=== PATIENT | female | born 1940 ===

== ENCOUNTER 2018-06-28 05:26 | Inpatient (IN) | payer OTHER ==
[~2018-06-28] VITALS: Ht 152.4 cm; Wt 64.4 kg
[2018-06-28] VITALS (13 sets, daily range): BP systolic 123–189; BP diastolic 77–100
[~2018-06-28 05:26] MED LIST: AMLODIPINE BESYL5 MG ORAL; BACLOFEN10 MG ORAL; CLONIDINE HCL0.2 MG PO; CYMBALTA30 MG ORAL; LOSARTAN POTASS25 MG ORAL; MELOXICAM15 MG PO; NORMODYNE100 MG ORAL; OXYBUTYNIN CHLOR5 M1 ORAL; SULFAMETHOXAZO1 EAC2 ORAL; TRAMADOL HCL50 MG ORAL
[2018-06-28] MEDS ORDERED: Pantoprazole Inj ONE (06:31)
[2018-06-28] MEDS ORDERED: Zemuron 50mg/5ml Inj IV ONE (06:31)
[2018-06-28] MEDS ORDERED: Vancomycin 1gm vial IVPB ONE ×2 (06:31→07:12)
[2018-06-28] MEDS ORDERED: Sodium Chloride 10ml vial INJ ONE ×2 (06:33→07:08)
[2018-06-28] MEDS ORDERED: Pantoprazole Inj IVP ONE (07:00)
[2018-06-28] MEDS ORDERED: Vancomycin 1gm/D5W 275ml IVPB ONE ×2 (07:00)
[2018-06-28] MEDS ORDERED: LR 1000ml 1,000 ML IVLG SCH (07:06)
--- NOTE | 2018-06-28 07:07 | Anethesia Preoperative Eval ---
Anesthesia Pre-op PMH/ROS General Date of Evaluation: Jun 28, 2018 Time of Evaluation: 07:24 Anesthesiologist: Dania ASA Score: ASA 3 Mallampati Score Class I : Soft palate, uvula, fauces, pillars visible Class II: Soft palate, uvula, fauces visible Class III: Soft palate, base of uvula visible Class IV: Only hard plate visible Mallampati Classification: Class II Surgeon: Sav Diagnosis: Back Pain Surgical Procedure: TLIF L3-4 Anesthesia History: none Social History: smoking - Hx of for 35 yrs Family History: no anesthesia problems Allergies: Coded Allergies: No Known Allergies (Unverified , 06/26/18) Medications: see eMAR Patient NPO?: Yes NPO Date: Jun 27, 2018 NPO Time: 1800 Past Medical History Cardiovascular: Reports: HTN Musculoskeletal/Integumentary: Reports: other - Osteoporosis, Muscle atrophy bilateral legs. Anesthesia Pre-op Phys. Exam Physician Exam Last Vital Signs Date Time Temp Pulse Resp B/P (MAP) Pulse Ox O2 Delivery O2 Flow Rate FiO2 06/28/18 06:43 97.2 80 20 156/87 (110) 97 06/28/18 06:24 Room Air Constitutional: NAD Neurologic: CN 2-12 intact Cardiovascular: RRR Respiratory: CTA Gastrointestinal: S/NT/ND Airway Exam Mallampati Score: Class II MO: limited ROM: limited Teeth: missing, intact Anesthesia Pre-op A/P Risk Assessment & Plan Assessment: ASA 3 Plan: GA, SED, GlideScope Go Status Change Before Surgery: No Pre-Antibiotics Dru Gram Vancomycin IV Given Within 1 Hr of Incision: Yes Time Given: 07:46 Reece Najera MD Jun 28, 2018 07:07
[2018-06-28] MEDS ORDERED: Dexamethasone 4mg/ml vial ONE (07:08)
[2018-06-28] MEDS ORDERED: Lidocaine 1% MPF 10mg/ml 5ml ONE ×2 (07:08→10:28)
[2018-06-28] MEDS ORDERED: Bacitracin Oint 15gm Tube TOPIC ONE (07:12)
[2018-06-28] MEDS ORDERED: Thrombin 5000 units spray kit TOPIC ONE (07:12)
[2018-06-28] MEDS ORDERED: Heparin 1000 units/ml 1ml Vial ONE (07:12)
[2018-06-28 07:13] LABS: APPEARANCE,URINE CLEAR; BILIRUBIN, URINE NEGATIVE (NEGATIVE); COLOR,URINE PALE YELLOW; GLUCOSE, URINE (UA) NEGATIVE (NEGATIVE); KETONES,URINE NEGATIVE (NEGATIVE); NITRITE,URINE NEGATIVE (NEGATIVE); PH,URINE 6 (4.5-8.0); PROTEIN,URINE NEGATIVE (NEGATIVE); UROBILINOGEN,URINE NORMAL MG/DL (0.0-1.0)
[2018-06-28] MEDS ORDERED: Thrombin 5000 units TOPIC ONE ×2 (07:13→10:10)
[2018-06-28] MEDS ORDERED: Bupivacaine w/Epi 0.5% 30ml Vial INJ ONE (07:13)
[2018-06-28] MEDS ORDERED: Gelfoam Size TOPIC ONE (07:13)
[2018-06-28 07:14] LABS: LEUKOCYTE ESTERASE ,URINE 2+ (NEGATIVE)
[2018-06-28] MEDS ORDERED: Gelfoam Absorbable 1gm powder pkt TOPIC ONE (07:14)
[2018-06-28] MEDS ORDERED: Bacitracin 50000 Units Vial ONE (07:14)
[2018-06-28] MEDS ORDERED: Lidocaine 1% Plain 30 ml INJ ONE ×2 (07:14→07:41)
[2018-06-28] MEDS ORDERED: HYDROcodone/Acetamin 5/325 tab ORAL PRN (07:15)
[2018-06-28] MEDS ORDERED: Meperidine 50mg/ml Inj(FOR RIGORS ONLY) IVP PRN (07:15)
[2018-06-28] MEDS ORDERED: LORazepam Inj 2mg/ml 1ml IV PRN (07:15)
[2018-06-28] MEDS ORDERED: HYDROcodone/Acetamin 7.5/325 tab ORAL PRN ×2 (07:15→11:30)
[2018-06-28] MEDS ORDERED: oxyCODONE HCL/Acetaminophen 5/325mg ORAL PRN (07:15)
[2018-06-28] MEDS ORDERED: DiphenhydrAMINE 50mg/ml Inj IVP PRN (07:15)
[2018-06-28] MEDS ORDERED: Midazolam 2mg/2ml Inj IVP PRN (07:15)
[2018-06-28] MEDS ORDERED: Metoclopramide 10mg/2ml Inj IVP PRN (07:15)
[2018-06-28] MEDS ORDERED: fentaNYL 100 mcg/2 mL IV PRN (07:15)
[2018-06-28] MEDS ORDERED: Acetaminophen (Non formulary) 100 ML IV ONE (07:15)
[2018-06-28] MEDS ORDERED: Hydromorphone 0.5mg/0.5ml inj IVP PRN (07:15)
[2018-06-28] MEDS ORDERED: Labetalol 5mg/ml 20ml vial IV PRN (07:15)
[2018-06-28] MEDS ORDERED: Ketorolac 30mg Inj IV PRN ×2 (07:15)
[2018-06-28] MEDS ORDERED: Atropine Sulfate 0.4mg/ml inj IVP PRN (07:15)
[2018-06-28] MEDS ORDERED: NS Irrig 1000ml IRRIG ONE (07:29)
[2018-06-28] MEDS ORDERED: NS Irrig 1000ml ONE (07:30)
[2018-06-28] MEDS ORDERED: LR 1000ml ONE (07:30)
[2018-06-28] MEDS ORDERED: Propofol 1,000mg/ 100ml btl IV ONE (07:30)
[2018-06-28] MEDS ORDERED: Sterile Water Irrig 1000ml IRRIG ONE (07:30)
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
--- NOTE | 2018-06-28 08:49 | Immediate Post-Op Evaluation ---
Immediate Post-Op Evalulation Immediate Post-Op Evalulation Procedure: TLIF L3-4 Date of Evaluation: Jun 28, 2018 Time of Evaluation: 11:34 IV Fluids: 800 LR Blood Products: 0 Estimated Blood Loss: 125 Urinary Output: 1200 Blood Pressure Systolic: 154 Blood Pressure Diastolic: 89 Pulse Rate: 84 Respiratory Rate: 16 O2 Sat by Pulse Oximetry: 100 Temperature (Fahrenheit): 98.2 Pain Score (1-10): 2 Nausea: No Vomiting: No Complications 0 Patient Status: awake, reacts, patent, extubated, none Hydration Status: adequate Dru Gram Vancomycin IV Given Within 1 Hr of Incision: Yes Time Given: 07:46 Reece Najera MD Jun 28, 2018 08:49
[2018-06-28] MEDS ORDERED: fentaNYL 100 mcg/2 mL IV ONE (08:59)
[2018-06-28] MEDS ORDERED: Neostigmine 1mg/ml 10ml Inj ONE (10:37)
[2018-06-28] MEDS ORDERED: Glycopyrrolate 0.2mg/ml 1ml Vial ONE (10:37)
[2018-06-28] MEDS ORDERED: Naloxone 0.4mg/ml Inj ONE (10:56)
[2018-06-28] MEDS ORDERED: Milk of Magnesia 30ml Ud ORAL PRN (11:30)
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
--- NOTE | 2018-06-28 12:08 | General Progress Note ---
Progress Note Progress Note Neurosurgery Post op S/ No headaches. No leg pain and right leg feels stronger on exam O/ Vs: Last 24 Hour Vital Signs Date Time Temp Pulse Resp B/P (MAP) Pulse Ox O2 Delivery O2 Flow Rate FiO2 06/28/18 11:55 82 16 156/86 100 Nasal Cannula 3 06/28/18 11:50 84 15 155/84 100 Nasal Cannula 3 06/28/18 11:40 81 19 158/86 100 Nasal Cannula 3 06/28/18 11:30 85 15 167/88 100 Simple Mask 6 06/28/18 11:23 98.1 84 16 189/100 100 Simple Mask 6 06/28/18 11:21 84 16 100 06/28/18 06:43 97.2 80 20 156/87 (110) 97 06/28/18 06:24 Room Air Alert and oriented x3 Moves all extremities well Lower extremities are strong Normal sensation Wound completely dry doing well S/p lumbar fusion and CSF leak repair Flat x 24 hrs Family updated. Katie Ang MD Jun 28, 2018 12:08
--- NOTE | 2018-06-28 12:25 | NUR ---
NURSE NOTES: PATIENT RECEIVED FROM PACU ON BED IN SUPINE FLAT POSITION. AOX4. DENIES PAIN AT THIS TIME. PT. LOG ROLLED IN BED TO SEE SURGICAL SITE; C/D/I. ICE PACK PLACED. NEUROVASCULAR CHECKS PERFORMED. (SEE INTERVENTIONS) HEPLOCK PATENT AND SECURED. ETIENNE CATHETER SECURED AND PATENT. DRAINING STRAW-COLORED URINE. BEDSIDE REPORT RECEIVED FROM LEAD RADIATION THERAPIST. PATIENT AND DAUGHTER INSTRUCTED OF BEDREST RESTRICTIONS. QUESTIONS ANSWERED , NEEDS MET. PT/DTR ORIENTED TO ROOM. CALL LIGHT WITHIN REACH.
--- NOTE | 2018-06-28 13:04 | Diagnostic Imaging Report ---
Indication: Intraoperative imaging Comparison: None Findings: 4 fluoroscopic views of the lumbar spine were obtained. Images of the lower lumbar spine showing interspinous a prosthesis at L4-5. Anterolisthesis noted at this level with moderate narrowing of intervertebral disc. IMPRESSION: Intraoperative imaging
--- NOTE | 2018-06-28 16:04 | NUR ---
NURSE NOTES: PATIENT REMAINS STABLE AND COMFORTABLE IN SUPINE FLAT POSITION. FAMILY AT BEDSIDE. TOLERATING CLEAR LIQUIDS. VSS.AFEBRILE. CMS WNL. CALL LIGHT WITHIN REACH.
[2018-06-28] MEDS: NS w/KCl 20mEq 1,000 ML IV SCH (16:31)
[2018-06-28] MEDS: HYDROmorphone 1mg/ml Carpuject IVP PRN ×2 (16:34→21:16)
[2018-06-28] MEDS ORDERED: Docusate 100mg cap ORAL SCH (18:00)
[2018-06-28] MEDS: Docusate Sod/Senna tab ORAL SCH (18:01)
--- NOTE | 2018-06-28 18:16 | NUR ---
NURSE NOTES: PATIENT DOING WELL. PAIN CONTROLLED WITH DILAUDID. TOLERATING PO. NO N/V/ NOTED. VSS. USING INCENTIVE SPIROMETRY INSTRUCTED. BED IN LOW AND LOCKED POSITION. CALL LIGHT WITHIN REACH.
--- NOTE | 2018-06-28 19:10 | NUR ---
HAND-OFF: Report given to CHRISTOPHER ALEGRIA RN.
--- NOTE | 2018-06-28 19:30 | NUR ---
NURSE NOTES: Received report from DUSTY Santamaria. Received pt lying flat in bed, AOX4, denies pain at this time, no distress noted. Posterior surgical dressing C/D/I. IV L hand # 18 patent and intact IV fluid infusing as ordered. Rodriguez catheter draining yellow color output. Instructed pt to use IS q 1 x 10 while awake. Pt verbalized understanding. Bed in lowest position and locked, side rails up x 2, call light within reach. Will continue to monitor.
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
--- NOTE | 2018-06-28 20:54 | Consultation ---
History of Present Illness General Date patient seen: Jun 28, 2018 Time patient seen: 20:50 Present Illness Allergies: Coded Allergies: No Known Allergies (Unverified , 06/26/18) Medication History Scheduled Amlodipine Besylate* (Amlodipine Besylate*), 5 MG ORAL BID, (Reported) Baclofen* (Baclofen*), 5 MG ORAL BED, (Reported) Clonidine Hcl (Clonidine Hcl), 0.2 MG PO BEDTIME, (Reported) Duloxetine Hcl* (Cymbalta*), 30 MG ORAL DAILY, (Reported) Labetalol HCl (Labetalol HCl), 50 MG ORAL DA, (Reported) Losartan Potassium* (Losartan Potassium*), 25 MG ORAL BID, (Reported) Oxybutynin Chloride (Oxybutynin Chloride), 5 MG ORAL DAILY, (Reported) Sulfamethoxazole/Trimethoprim Ds Tablet* (Sulfamethoxazole-Tmp Ds Tablet*), 1 TAB ORAL TWICE A DAY, (Reported) Scheduled PRN Tramadol Hcl* (Ultram*), 50 MG ORAL BID PRN for For Pain, (Reported) Discontinued Medications Meloxicam* (Meloxicam*), 15 MG PO DAILY, (Reported) Discontinued Reason: MD discontinued med Patient History Healthcare decision maker KEVIN ELLIS-DAUGHTER Resuscitation status Full Code Advanced Directive on File Review of Systems Review of Symptoms General ROS: no fever Respiratory ROS: no cough, shortness of breath, or wheezing Cardiovascular ROS: no chest pain Gastrointestinal ROS: denies abdominal pain, bright red blood in stool. Musculoskeletal ROS: has pain Dermatological ROS: no new or changing skin lesions, rashes or pruritis Physical Exam Physical Exam General appearance: alert, cooperative, Head: Normocephalic, Eyes: conjunctivaeclear. Neck: no JVD Lungs: clear to auscultation bilaterally Heart: regular rate and rhythm, S1, S2 normal, Abdomen: soft, non-tender. Bowel sounds normal. No masses, Extremities: extremities normal, atraumatic, no cyanosis or edema able to dorsifklex the ankle Last 24 Hour Vital Signs Date Time Temp Pulse Resp B/P (MAP) Pulse Ox O2 Delivery O2 Flow Rate FiO2 06/28/18 17:04 98.9 06/28/18 16:00 98.9 77 19 126/80 (95) 96 06/28/18 12:55 98.6 79 16 129/89 (102) 100 3/28/19 12:30 Room Air 06/28/18 12:30 97.6 81 15 156/83 100 Nasal Cannula 3 06/28/18 12:25 98.4 82 16 123/77 (92) 100 06/28/18 12:15 85 16 158/85 100 Nasal Cannula 3 06/28/18 12:00 83 18 160/81 100 Nasal Cannula 3 06/28/18 11:55 82 16 156/86 100 Nasal Cannula 3 06/28/18 11:50 84 15 155/84 100 Nasal Cannula 3 06/28/18 11:40 81 19 158/86 100 Nasal Cannula 3 06/28/18 11:30 85 15 167/88 100 Simple Mask 6 06/28/18 11:23 98.1 84 16 189/100 100 Simple Mask 6 06/28/18 11:21 84 16 100 06/28/18 06:43 97.2 80 20 156/87 (110) 97 06/28/18 06:24 Room Air impression s/p conmplex lumbar spine surgery perioperative antibiotic prophylaxis given PT Ot may require to place in rehab monitor closely pyuria preop on bactrim hypertension on anti hypertensive with hiold parameters discussed with nursing staff. Laboratory Tests Test 06/28/18 06:15 Urine Color Pale yellow Urine Appearance Clear Urine pH 6 (4.5-8.0) Urine Specific [place] 1.015 (1.005-1.035) Urine Protein Negative (NEGATIVE) Urine Glucose (UA) Negative (NEGATIVE) Urine Ketones Negative (NEGATIVE) Urine Blood 1+ (NEGATIVE) H Urine Nitrite Negative (NEGATIVE) Urine Bilirubin Negative (NEGATIVE) Urine Urobilinogen Normal MG/DL (0.0-1.0) Urine Leukocyte Esterase 2+ (NEGATIVE) H Urine RBC 0-2 /HPF (0 - 2) Urine WBC 2-4 /HPF (0 - 2) Urine Squamous Epithelial Cells Few /LPF (NONE/OCC) Urine Bacteria Few /HPF (NONE) Height (Feet): 5 Height (Inches): 0.00 Weight (Pounds): 142 Medications Current Medications Medications (Trade) Dose Ordered Sig/Reginald Route PRN Reason Start Time Stop Time Status Last Admin Dose Admin Acetaminophen (Tylenol) 650 mg Q4H PRN ORAL headache or temp>101 06/28/18 11:30 07/28/18 11:29 Acetaminophen (Tylenol) 650 mg Q6H PRN ORAL Mild Pain (Pain Scale 1-3) 06/28/18 11:30 07/28/18 11:29 Acetaminophen/ Hydrocodone Bitart ([place] 7.5/325) 1 tab Q3H PRN ORAL pain score 4-6 06/28/18 11:30 07/05/18 11:29 Acetaminophen/ Hydrocodone Bitart ([place] 7.5/325) 2 tab Q3H PRN ORAL pain scale 7-10 06/28/18 11:30 07/05/18 11:29 Duloxetine HCl (Cymbalta) 30 mg DAILY ORAL 06/29/18 09:00 07/29/18 08:59 Hydromorphone HCl (Dilaudid) 1 mg Q2H PRN IVP Breakthrough Pain 06/28/18 11:30 07/05/18 11:29 06/28/18 16:34 Labetalol HCl (Normodyne) 50 mg DAILY ORAL 06/29/18 09:00 07/29/18 08:59 Losartan Potassium (Cozaar) 25 mg EVERY 12 HOURS ORAL 06/28/18 21:00 07/28/18 20:59 Magnesium Hydroxide (Mom) 30 ml QIDPRN PRN ORAL Constipation 06/28/18 11:30 07/28/18 11:29 Ondansetron HCl (Zofran) 4 mg Q6H PRN IVP Nausea & Vomiting 06/28/18 11:30 07/28/18 11:29 Oxybutynin Chloride (Ditropan) 5 mg DAILY ORAL 06/29/18 09:00 07/29/18 08:59 Senna/Docusate Sodium (Ana-Colace) 1 tab TWICE A DAY ORAL 06/28/18 18:00 07/28/18 17:59 06/28/18 18:01 Sodium Chloride 1,000 ml @ 75 mls/hr [id number] IV 06/28/18 13:00 07/28/18 12:59 06/28/18 16:31 Sodium Chloride 1,000 ml @ 100 mls/hr Q10H IV 06/28/18 07:00 07/28/18 06:59 Trimethoprim/ Sulfamethoxazole (Bactrim Single Strength) 1 tab EVERY 12 HOURS ORAL 06/28/18 21:00 4/4/19 20:59 Vancomycin HCl 1 gm/Dextrose 275 ml @ 183.3 mls/ hr EVERY 12 HOURS IVPB 06/28/18 21:00 06/29/18 10:31 [facility] Hospital declaration INPATIENT level of care is warranted for this patient because patient is a 89 year old with who presents with suspicion of . I have a high level of concern because . Patient is at high risk for . Plan of care/treatment include . Patient care is expected to be greater than 2 midnights. OBSERVATION level of care is warranted for this patient. Patient is a 89 year old with who presents with . Patient will be admitted for 1 midnight, but if additional night(s) is/are necessary, patient will be converted to inpatient status for the entire hospitalization Disposition: Once the patient is stable to leave the hospital, I anticipate the patient will likely be discharged to the following environment: Estimated discharge date: I spent 70 minutes on this patient's case, and minutes was dedicated to counseling and/or care coordination. MIPS (Merit-based Incentive Payment System) Applicable CPT: 07594, 50065 CHECK ALL THAT ARE MET: Measure #5 (CHF): All ages. Prescribe VIKTOR/ARB upon discharge for patients with left ventricular systolic dysfunction. If not, the reason is clearly documented in the medical chart. Measure #8 (CHF): All ages. Prescribe a beta bairon upon discharge for patients with left ventricular systolic dysfunction. If not, the reason is clearly documented in the medical chart. Measure #47 Advance care plan or surrogate decision maker documented in the medical record. Measure #130 The provider has documented, updated, or reviewed the patients current medication list and has documented it in the patients note. Measure #374 (All): Send report to referring provider. Measure #407(Sepsis due to MSSA bacteremia): Age 18+ Patient treated with a beta-lactam antibiotic (Nafcillin, Oxacillin or Cefazolin) as definitive therapy. MEDICAL COMPLEXITY High complexity medical decision making (need 2/3 categories) Problem - need 4 points Acute/new problem with new plan for workup (4 points, 1 max) Acute/new problem without additional workup (3 points, 1 max) Unstable chronic problem actively being managed (2 point each, 2 max) Stable chronic problem actively being managed (1 point each, 2 max) Self-limited/transient process (constipation, muscle ache, etc) (1 point each , 2 max) Data - need 4 points Reviewed labs/imaging studies (1 points, 2 max) Independent review of imaging (EKG, xrays, etc) (2 points, 2 max) Discussed case with consult/other MD/RN (2 points, 2 max) High Risk - qualify if have one of the following: Severe exacerbation of acute problem, acute mental status change, IV narcotics , monitoring drug levels (vancomycin, INR, tacrolimus etc) Frankie Farris MD Jun 28, 2018 20:54
--- NOTE | 2018-06-28 21:00 | NUR ---
NURSE NOTES: Dr. Farris came and saw pt MD ordered blood pressure medication. Orders carried out.
[2018-06-28] MEDS: Losartan 25mg tab ORAL SCH (21:12)
[2018-06-28] MEDS: Vancomycin 1 GM in D5W 275 ML IVPB SCH (21:12)
[2018-06-28] MEDS: Bactrim SS Tab ORAL SCH (21:12)
[2018-06-29] VITALS (8 sets, daily range): BP systolic 116–156; BP diastolic 68–95
--- NOTE | 2018-06-29 00:11 | NUR ---
NURSE NOTES: Urine culture collected and sent to lab.
[2018-06-29] MEDS: NS w/KCl 20mEq 1,000 ML IV SCH ×2 (02:23→15:40)
--- NOTE | 2018-06-29 03:15 | History and Physical Report ---
DATE OF ADMISSION: 06/28/2018 HISTORY OF PRESENT ILLNESS: The patient is an unfortunate female, who is admitted to the hospital for further evaluation. In preop, the patient had vancomycin 1 gram en route to the operating room. The patient's planned surgery was posterior lumbar decompression, interspinous fusion. The patient is an unfortunate female, who has had history of arthritis, hypertension, and fibroids. She was seen and evaluated on 06/16/2018. PAST MEDICAL HISTORY: 1. Arthritis. 2. Hypertension. MEDICATIONS: Prior to admission include: 1. Oxybutynin 5 daily. 2. Losartan 25 daily. 3. Labetalol 100 b.i.d. 4. Norvasc 5 daily. 5. Baclofen 10 daily. 6. Clonidine 0.2 at bedtime. 7. Cymbalta 30 daily. 8. Mobic p.r.n. 9. Tramadol 50. SOCIAL HISTORY: She is a former smoker. She drinks alcohol. She does not use any drugs. An ejection fraction that was obtained on the patient shows ejection fraction to be 60 to 65 percent. She does have diastolic dysfunction. She has concentric mild left ventricular hypertrophy. This patient underwent surgery without difficulty. Postoperatively, the patient was sent to the PACU. She denies any nausea or vomiting. She denies any double vision or blurred vision. vitals reviewed PHYSICAL EXAMINATION: HEENT: Normocephalic and atraumatic. HEART: S1 and S2. Regular rate and rhythm. LUNGS: Clear to auscultation bilaterally. NECK: There is no jugular venous distention. ABDOMEN: Soft. Positive bowel sounds. EXTREMITIES: No clubbing. No cyanosis. IMPRESSION: This is an unfortunate female, who was admitted to the hospital for further evaluation after having a posterior lumbar fusion. PLAN: 1. Make sure to resume her blood pressure medications with hold parameters. 2. Avoid any NSAID. 3. CBC and CMP daily will be ordered on the patient to monitor the patient closely. 4. DVT prophylaxis with sequential compression stocking as well as LAUREL hose stockings. 5. Preoperative antibiotic prophylaxis. 6. PT. 7. OT. Frankie Farris M.D. DR: RENNY JOB#: [id number] CC: REG
--- NOTE | 2018-06-29 06:00 | NUR ---
NURSE NOTES: Pt refused ice pack to posterior surgical site. Will endorse to next nurse.
[2018-06-29 07:08] LABS: BASOPHILS % (AUTO) 0.5 % (0.0-2.0); EOSINOPHILS % (AUTO) 0.1 % (0.0-3.0); HEMATOCRIT 34.6 % (37.0-47.0); HEMOGLOBIN 10.9 G/DL (12.0-16.0); LYMPHOCYTES % (AUTO) 12.1 % (20.0-45.0); MEAN CORPUSCULAR VOLUME 84 FL (80-99); MONOCYTES % (AUTO) 8.1 % (1.0-10.0); NEUTROPHILS % (AUTO) 79.2 % (45.0-75.0); PLATELET COUNT 261 K/UL (150-450); RED BLOOD COUNT 4.11 M/UL (4.20-5.40); RED CELL DISTRIBUTION WIDTH 15.8 % (11.6-14.8); WHITE BLOOD COUNT 12.4 K/UL (4.8-10.8)
--- NOTE | 2018-06-29 07:20 | NUR ---
NURSE NOTES: Pt received flat . Pt to be transitioned into semi fowlers at 10 and assessed for headache. Currently complaining of headache. Medication given from outgoing nurse. call light is in reach. Provided assistance with breakfast. Current paln of care will be followed
[2018-06-29] MEDS: HYDROmorphone 1mg/ml Carpuject IVP PRN (07:25)
[2018-06-29 07:32] LABS: ANION GAP 7 mmol/L (5-15); BLOOD UREA NITROGEN 9 mg/dL (7-18); CARBON DIOXIDE 28 MMOL/L (21-32); CHLORIDE 104 MMOL/L (98-107); CREATININE 0.6 MG/DL (0.55-1.30); POTASSIUM 4.7 MMOL/L (3.5-5.1); SODIUM 139 MMOL/L (136-145)
--- NOTE | 2018-06-29 07:49 | NUR ---
HAND-OFF: Report given to DUSTY Matias. Pt in stable condition.
[2018-06-29] MEDS: Docusate Sod/Senna tab ORAL SCH ×2 (09:31→18:35)
[2018-06-29] MEDS: Oxybutynin 5mg tab ORAL SCH (09:32)
[2018-06-29] MEDS: Losartan 25mg tab ORAL SCH ×2 (09:32→20:16)
[2018-06-29] MEDS: Bactrim SS Tab ORAL SCH ×2 (09:33→20:16)
[2018-06-29] MEDS: DULoxetine 30mg cap ORAL SCH (09:33)
[2018-06-29] MEDS: Vancomycin 1 GM in D5W 275 ML IVPB SCH (09:42)
--- NOTE | 2018-06-29 10:20 | NUR ---
NURSE NOTES: Dr Ang called to report that pt has a headache, and if still wanted real estate underwriter to raise hob. gave instructions to raise head, and if the pain increase to follow protocol. Charge Nurse made aware. HOB elevated pt stated headache was reilieved slightly by position change .
--- NOTE | 2018-06-29 10:50 | NUR ---
NURSE NOTES: HOB raised slightly pt tolerating. Ears do not have have drainage. Has not complained of increase pressure. Current paln of care will be followed Addendum: 06/29/18 at 1117 by Polly Toledo RN current plan of care will be followed
[2018-06-29] MEDS: HYDROcodone/Acetamin 7.5/325 tab ORAL PRN (13:10)
--- NOTE | 2018-06-29 13:39 | 48 Hour Post Anesthesia Eval ---
Post Anesthesia Evaluation Procedure: TLIF L3-4 Date of Evaluation: Jun 29, 2018 Time of Evaluation: 12:02 Blood Pressure Systolic: 156 0: 90 Pulse Rate: 90 Respiratory Rate: 16 Temperature (Fahrenheit): 98.1 O2 Sat by Pulse Oximetry: 97 Airway: patent Nausea: No Vomiting: No Pain Intensity: 2 Hydration Status: adequate Cardiopulmonary Status: Stable Mental Status/LOC: patient returned to baseline Follow-up Care/Observations: 0 Post-Anesthesia Complications: 0 Follow-up care needed: N/A Reece Najera MD Jun 29, 2018 13:39
--- NOTE | 2018-06-29 14:09 | NUR ---
CASE MANAGEMENT:REVIEW 78 YR OLD FEMALE HERE FOR ELECTIVE SURGERY SI: SEVERE LBP AND RADICULOPATHY 97.2 80 20 156/87 97% ON RA IS: TO SURGERY: BILATERAL L3 HEMILAMINECTOMY : TO MED/SURG 3 [facility] 06/29/18 SI: POD #1 98.1 90 16 156/90 97% ON RA WBC+12.4 IS: IVF@75/HR NORVASC PO QD LABETALOL PO Q12 COZAAR PO Q12 BACTRIM PO Q12 : MED/SURG STATUS
--- NOTE | 2018-06-29 15:33 | NUR ---
P.T Note: Sitting protocol passed,neuro checked and remained intact Pt. cleared by nursing for OOB mobility. P.T evaluation completed and treatment initiated per spinal protocol. Pt tolerated P.T eval/tx well. Pt initially c/o temporal headache upon initial sitting and standing however subsided over time from 5/10 post standing and gait/ambulation activities. Pt currently require MIN/CGA x 1 for bed mobility, transfers and gait activities using the FWW. Skilled P.T service is warranted to ensure safety and compliance with spinal precautions/proper body mechanics when performing ADL/functional mobilities. Recommend FWW and raised toilet seat at [place]. Addendum: 06/29/18 at 1534 by RAZA LYNN PT Amended: Links added.
--- NOTE | 2018-06-29 17:13 | NUR ---
NURSE NOTES: pt is up in chair disconnected from IV .Stated her head does not hurt and thinks it may be the iv and wanted to wait for a restart. Up and ambulated with physical therapy tolerated. Pt eating well sitting up in chair. Call light is in reach . current plan of care will be followed
--- NOTE | 2018-06-29 17:17 | NUR ---
NURSE NOTES: called earlier in shift to inquire if pt was up and walking. Stated he would call me back for possible dc of Rodriguez catheter
--- NOTE | 2018-06-29 17:56 | General Progress Note ---
Progress Note Progress Note Neurosurgery POD#1 S/ doing well. ambulated with PT several times. No postural headache. Had caffeine withdrawal head in am when falt in bed. Headcahe improved with ambulation. No longer complains of radiating pain into th elegs. Low back pain minimal O/ VS: Last 24 Hour Vital Signs Date Time Temp Pulse Resp B/P (MAP) Pulse Ox O2 Delivery O2 Flow Rate FiO2 06/29/18 13:39 90 16 97 06/29/18 09:33 90 156/90 06/29/18 09:32 156/90 06/29/18 09:32 156/90 06/29/18 09:31 90 156/90 06/29/18 09:00 Room Air 06/29/18 08:00 98.1 90 16 156/90 (112) 97 06/29/18 04:00 98.1 92 18 156/91 (112) 95 06/29/18 00:00 97.8 80 18 152/92 (112) 96 06/28/18 21:12 146/85 06/28/18 21:00 Room Air 06/28/18 20:00 97.9 81 18 146/85 (105) 99 Alert and oriented x 4. interactive and in good spirit. Incision is completely dry. No evidence of fluctance, erythema or drainage. Motor exam significant for improved strength in th eright LE. sensory normal New drerssing applied to the incision. Labs: Laboratory Tests Test 06/29/18 05:50 White Blood Count 12.4 K/UL (4.8-10.8) H Red Blood Count 4.11 M/UL (4.20-5.40) L Hemoglobin 10.9 G/DL (12.0-16.0) L Hematocrit 34.6 % (37.0-47.0) L Mean Corpuscular Volume 84 FL (80-99) Mean Corpuscular Hemoglobin 26.6 PG (27.0-31.0) L Mean Corpuscular Hemoglobin Concent 31.6 G/DL (32.0-36.0) L Red Cell Distribution Width 15.8 % (11.6-14.8) H Platelet Count 261 K/UL (150-450) Mean Platelet Volume 6.7 FL (6.5-10.1) Neutrophils (%) (Auto) 79.2 % (45.0-75.0) H Lymphocytes (%) (Auto) 12.1 % (20.0-45.0) L Monocytes (%) (Auto) 8.1 % (1.0-10.0) Eosinophils (%) (Auto) 0.1 % (0.0-3.0) Basophils (%) (Auto) 0.5 % (0.0-2.0) Sodium Level 139 MMOL/L (136-145) Potassium Level 4.7 MMOL/L (3.5-5.1) Chloride Level 104 MMOL/L (98-107) Carbon Dioxide Level 28 MMOL/L (21-32) Anion Gap 7 mmol/L (5-15) Blood Urea Nitrogen 9 mg/dL (7-18) Creatinine 0.6 MG/DL (0.55-1.30) Estimat Glomerular Filtration Rate mL/min (>60) Glucose Level 111 MG/DL (74-106) H Calcium Level 9.0 MG/DL (8.5-10.1) doing well ambulate D/c richard D/c planning Katie Ang MD Jun 29, 2018 17:56
--- NOTE | 2018-06-29 18:16 | NUR ---
NURSE NOTES: DC removed Addendum: 06/29/18 at 1819 by Polly Toledo RN Rodriguez catheter removed . No complaints of discomfort
--- NOTE | 2018-06-29 19:26 | NUR ---
NURSE NOTES: Pt has not had a desire to urinate at this time. Informed to press call light for assistance. Continues to be pain free. Pending discharge for tomorrow , personal medications taken to pharmacy, back brace delivered and at bed side. Call light well in reach , bed in safe position
--- NOTE | 2018-06-29 19:29 | NUR ---
HAND-OFF: Report given to Jose Eduardoe informed of pending discharge for am , written prescriptions in chart, and personal medications delivered to pharmacy.
--- NOTE | 2018-06-29 20:00 | NUR ---
NURSE NOTES: Patient received in bed, awake alert oriented. Denies pain at this time. Made aware need to void after removing ramos catheter, patient denies urge to void or any bladder distention. Encouraged PO, patient tolerating adequate PO fluids. Back dressing intact. Back brace at bedside. Call light in reach. Will continue to monitor.
--- NOTE | 2018-06-29 22:00 | NUR ---
NURSE NOTES: Patient successfully ambulated with walker to the bathroom and voided post catheter removal.
[2018-06-30] MEDS: HYDROcodone/Acetamin 7.5/325 tab ORAL PRN ×2 (00:16→10:27)
[2018-06-30 03:17] VITALS: BP 126/65
--- NOTE | 2018-06-30 04:19 | NUR ---
NURSE NOTES: Patient voided x3 but still no BM. Patient is passing flatus. Offered patient laxatives but patient stated she wants to wait it out as she was given stool softener yesterday.
--- NOTE | 2018-06-30 07:51 | NUR ---
HAND-OFF: Report given to Kendra MONTANO.
[2018-06-30 08:00] VITALS: BP 146/91
--- NOTE | 2018-06-30 08:00 | NUR ---
NURSE NOTES: Received report from Zaida MONTANO, pt a/a/o x4 laying in bed with no signs of distress or other issues at this time. surgical dressing dry and intact. IV on the left FA gauge #18 heplock. pt was re-educate in the importance to wear the brace at all time while out of the bed. pt is in a soft diet and she is able to tolerated well with no signs of nausea/vomiting. call light within reach, bed in lowest position. side rales up x2. plan to walk with PT. I will f/u as needed.
[2018-06-30] MEDS: Docusate Sod/Senna tab ORAL SCH (08:35)
[2018-06-30] MEDS: Bactrim SS Tab ORAL SCH (08:35)
[2018-06-30] MEDS: Losartan 25mg tab ORAL SCH (08:36)
[2018-06-30] MEDS: DULoxetine 30mg cap ORAL SCH (08:36)
[2018-06-30] MEDS: Oxybutynin 5mg tab ORAL SCH (08:36)
[2018-06-30 12:00] VITALS: BP 101/72
--- NOTE | 2018-06-30 12:10 | Consultation ---
History of Present Illness General Date patient seen: Jun 30, 2018 Time patient seen: 12:09 Present Illness Allergies: Coded Allergies: No Known Allergies (Unverified , 06/26/18) Medication History Scheduled Amlodipine Besylate* (Amlodipine Besylate*), 5 MG ORAL BID, (Reported) Baclofen* (Baclofen*), 5 MG ORAL BED, (Reported) Clonidine Hcl (Clonidine Hcl), 0.2 MG PO BEDTIME, (Reported) Duloxetine Hcl* (Cymbalta*), 30 MG ORAL DAILY, (Reported) Labetalol HCl (Labetalol HCl), 50 MG ORAL DA, (Reported) Losartan Potassium* (Losartan Potassium*), 25 MG ORAL BID, (Reported) Oxybutynin Chloride (Oxybutynin Chloride), 5 MG ORAL DAILY, (Reported) Sulfamethoxazole/Trimethoprim Ds Tablet* (Sulfamethoxazole-Tmp Ds Tablet*), 1 TAB ORAL TWICE A DAY, (Reported) Scheduled PRN Tramadol Hcl* (Ultram*), 50 MG ORAL BID PRN for For Pain, (Reported) Discontinued Medications Meloxicam* (Meloxicam*), 15 MG PO DAILY, (Reported) Discontinued Reason: MD discontinued med Patient History Healthcare decision maker KEVIN ELLIS-DAUGHTER Resuscitation status Full Code Advanced Directive on File Review of Systems ROS Narrative stillha ssome pain but better no nause a no vomiting no ches tpain no sob Physical Exam General Appearance: WD/WN HEENT: normocephalic Respiratory/Chest: lungs clear Cardiovascular/Chest: normal rate, regular rhythm Abdomen: soft Extremities: other - no edema Last 24 Hour Vital Signs Date Time Temp Pulse Resp B/P (MAP) Pulse Ox O2 Delivery O2 Flow Rate FiO2 06/30/18 10:57 98.3 06/30/18 09:00 Room Air 06/30/18 08:36 74 146/91 06/30/18 08:36 146/91 06/30/18 08:36 146/91 06/30/18 08:35 74 146/91 06/30/18 08:08 98.3 06/30/18 08:00 98.3 74 18 146/91 (109) 100 06/30/18 03:17 98.3 69 18 126/65 (85) 98 06/29/18 23:58 64 121/68 (85) 06/29/18 23:53 98.5 72 18 154/95 (114) 99 06/29/18 20:42 Room Air 06/29/18 20:27 124/73 06/29/18 20:16 69 124/73 06/29/18 20:16 124/73 06/29/18 20:00 98.5 69 18 124/73 (90) 100 06/29/18 16:00 98.2 18 116/70 (85) 06/29/18 13:39 90 16 97 Intake and Output 06/29/18 06/30/18 19:00 07:00 Intake Total 435 ml 400 ml Output Total 1400 ml Balance -965 ml 400 ml Intake Oral 360 ml 400 ml IV Total 75 ml Output Urine Total 1400 ml # Voids 3 Height (Feet): 5 Height (Inches): 0.00 Weight (Pounds): 142 Medications Current Medications Medications (Trade) Dose Ordered Sig/Reginald Route PRN Reason Start Time Stop Time Status Last Admin Dose Admin Acetaminophen (Tylenol) 650 mg Q4H PRN ORAL headache or temp>101 06/28/18 11:30 07/28/18 11:29 06/29/18 09:35 Acetaminophen (Tylenol) 650 mg Q6H PRN ORAL Mild Pain (Pain Scale 1-3) 06/28/18 11:30 07/28/18 11:29 Acetaminophen/ Hydrocodone Bitart ([place] 7.5/325) 1 tab Q3H PRN ORAL pain score 4-6 06/28/18 11:30 07/05/18 11:29 06/30/18 07:38 Acetaminophen/ Hydrocodone Bitart ([place] 7.5/325) 2 tab Q3H PRN ORAL pain scale 7-10 06/28/18 11:30 07/05/18 11:29 06/30/18 10:27 Amlodipine Besylate (Norvasc) 5 mg DAILY ORAL 06/29/18 09:00 07/29/18 08:59 06/30/18 08:35 Clonidine HCl (Catapres Tab) 0.1 mg Q12HR ORAL 06/29/18 09:00 07/29/18 08:59 06/30/18 08:36 Duloxetine HCl (Cymbalta) 30 mg DAILY ORAL 06/29/18 09:00 07/29/18 08:59 06/30/18 08:36 Hydromorphone HCl (Dilaudid) 1 mg Q2H PRN IVP Breakthrough Pain 06/28/18 11:30 07/05/18 11:29 06/29/18 07:25 Labetalol HCl (Normodyne) 50 mg Q12HR ORAL 06/29/18 09:00 07/29/18 08:59 06/30/18 08:36 Losartan Potassium (Cozaar) 25 mg EVERY 12 HOURS ORAL 06/28/18 21:00 07/28/18 20:59 06/30/18 08:36 Magnesium Hydroxide (Mom) 30 ml QIDPRN PRN ORAL Constipation 06/28/18 11:30 07/28/18 11:29 Ondansetron HCl (Zofran) 4 mg Q6H PRN IVP Nausea & Vomiting 06/28/18 11:30 07/28/18 11:29 06/29/18 04:41 Oxybutynin Chloride (Ditropan) 5 mg DAILY ORAL 06/29/18 09:00 07/29/18 08:59 06/30/18 08:36 Senna/Docusate Sodium (Ana-Colace) 1 tab TWICE A DAY ORAL 06/28/18 18:00 07/28/18 17:59 06/30/18 08:35 Trimethoprim/ Sulfamethoxazole (Bactrim Single Strength) 1 tab EVERY 12 HOURS ORAL 06/28/18 21:00 07/05/18 20:59 06/30/18 08:35 Assessment/Plan Status Narrative s/p complex lumbar spein surgeyr hypertenison doing well pt ot dvt prophyalxis paincontrol Frankie Farris MD Jun 30, 2018 12:10
--- NOTE | 2018-06-30 13:00 | NUR ---
NURSE NOTES: spoke with , he stated that possible d/c is tomorrow morning 07/02/18, he also stated that he will call tomorrow morning to give the official order to discharge pt. I will f/u as needed.
[2018-06-30] MEDS ORDERED: NORCO 5-325 TA1 EACH ORAL (14:07)
[2018-06-30] MEDS ORDERED: COLACE100 MG ORAL (14:08)
--- NOTE | 2018-06-30 15:33 | NUR ---
CASE MANAGEMENT: REVIEW SI: LUMBAR RADICULOPATHY TLIF L3-4 06/28 T 97.9 HR 66 RR 18 BP 146/91 SAT 100% ROOM AIR IS: DILAUDID IV Q2HR PRN BACTRIM PO Q12HR [place] COLACE PO BID OXYBUTYNIN PO QD NORVASC PO QD MED/SURG STATUS DCP: PATIENT IS FROM HOME
--- NOTE | 2018-06-30 15:41 | NUR ---
CASE MANAGEMENT: DCPNOTE PER MD ORDER DME ORDERED [facility] [phone] PH / [phone] FAX
[2018-06-30 16:00] VITALS: BP 11/70
--- NOTE | 2018-06-30 16:47 | NUR ---
NURSE NOTES: Received order to d/c pt home. discharge instructions and belongings given to patient. also given prescription, she stated that she will go to her regular pharmacy to fill it out. IV removed prior to d/c and surgical dressing changed today, incision dry and intact with no signs of redness nor yellow discharge. pt left the floor via w/c no signs of distress or other issues at this time. pts daughter at bedside, she will provide transportation. I will f/u as needed.
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
== END 2018-06-30 16:30 | disposition home or self-care (01) | DRG 454 ==
LOC: SDSOVERFLO 05:26 → 3E 12:28
PROC: 00UT07Z Supplement Spinal Meninges with Autologous Tissue Substitute, Open Approach (ICD-10-PCS; principal; 2018-06-28 07:30)
PROC: 0SG00AJ Fusion of Lumbar Vertebral Joint with Interbody Fusion Device, Posterior Approach, Anterior Column, Open Approach (ICD-10-PCS; principal; 2018-06-28 07:30)
PROC: 4A11X4G Monitoring of Peripheral Nervous Electrical Activity, Intraoperative, External Approach (ICD-10-PCS; principal; 2018-06-28 07:30)
PROC: 07DR3ZZ Extraction of Iliac Bone Marrow, Percutaneous Approach (ICD-10-PCS; principal; 2018-06-28 07:30)
PROC: 0SG0071 Fusion of Lumbar Vertebral Joint with Autologous Tissue Substitute, Posterior Approach, Posterior Column, Open Approach (ICD-10-PCS; principal; 2018-06-28 07:30)
DX: M54.16 Radiculopathy, lumbar region (principal); G96.0 Cerebrospinal fluid leak; N39.0 Urinary tract infection, site not specified; M48.061 Spinal stenosis, lumbar region without neurogenic claudication; I10 Essential (primary) hypertension
CPT/HCPCS: 36415; 72020; 76000; 80048; 81003; 85025; 86850; 86900; 86901; 87081; 87086; 94003; 94150; C9399; J2250; J2405; J2710